=== PATIENT | female | born 1950 | race Caucasian/White ===

== ENCOUNTER 2021-10-19 09:38 | Outpatient (CLI) | payer MEDICARE, OTHER, SELFPAY ==
--- NOTE | 2021-10-19 11:00 | NEURO_ITS ---
Impression: # Complains of numbness of lower extremities. 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 # Needle/EMG exam revealed no fibs, myotonia or myopathic patterns but decreased motor unit potentials are noted. Nerve Conduction Studies Anti Sensory Summary Table Stim Site NR Peak (ms) P-T Amp (?V) Site1 Site2 Delta-P (ms) Dist (cm) Sam (m/s) Left Sup Fibular Anti Sensory (Ant Lat Mall) 14 cm 3.7 16.1 14 cm Ant Lat Mall 3.7 16.0 43 Right Sup Fibular Anti Sensory (Ant Lat Mall) 14 cm 3.4 8.0 14 cm Ant Lat Mall 3.4 16.0 47 Left Sural Anti Sensory (Lat Mall) Calf 3.9 3.8 Calf Lat Mall 3.9 16.0 41 Right Sural Anti Sensory (Lat Mall) Calf 3.5 13.7 Calf Lat Mall 3.5 16.0 46 Motor Summary Table Stim Site NR Onset (ms) O-P Amp (mV) Site1 Site2 Delta-0 (ms) Dist (cm) Sam (m/s) Left Peroneal Motor (Vastus Med) Ankle 5.0 0.7 Popit Ankle 9.8 39.0 40 Popit 14.8 1.8 Right Peroneal Motor (Vastus Med) Ankle 4.6 5.2 Popit Ankle 7.8 36.0 46 Popit 12.4 3.8 Left Tibial Motor (Abd Foster Brev) Ankle 4.6 1.4 Knee Ankle 9.2 39.0 42 Knee 13.8 0.9 Right Tibial Motor (Abd Foster Brev) Ankle 4.7 0.5 Knee Ankle 8.0 38.0 48 Knee 12.7 0.5 F Wave Studies NR F-Lat (ms) L-R F-Lat (ms) Left Peroneal (Mrkrs) (EDB) 51.11 1.76 Right Peroneal (Mrkrs) (EDB) 49.35 1.76 Left Tibial (Mrkrs) (Abd Hallucis) 51.22 1.05 Right Tibial (Mrkrs) (Abd Hallucis) 50.18 1.05 EMG Side Muscle Nerve Root Ins Act Fibs Amp Dur Recrt Comment Right AntTibialis Dp Br Fibular L4-5 Nml Nml Decr >12ms Reduced Right Gastroc Tibial S1-2 Nml Nml Decr >12ms Reduced Right Fibularis Long Sup Br Fibular L5-S1 Nml Nml Decr >12ms Reduced Right Flex Dig Long Tibial L5-S2 Nml Nml Decr >12ms Reduced Right Ext Dig Brev Dp Br Fibular L5, S1 Nml Nml Decr >12ms Reduced Left AntTibialis Dp Br Fibular L4-5 Nml Nml Decr >12ms Reduced Left Gastroc Tibial S1-2 Nml Nml Decr >12ms Reduced Left Fibularis Long Sup Br Fibular L5-S1 Nml Nml Decr >12ms Reduced Left Flex Dig Long Tibial L5-S2 Nml Nml Decr >12ms Reduced Left Ext Dig Brev Dp Br Fibular L5, S1 Nml Nml Decr >12ms Reduced MTDD
== END 2021-10-19 09:39 | disposition home or self-care (01) ==
PROVIDERS: PCP Internal Medicine; Visit Provider Psychiatry & Neurology Neurology
DX: G62.9 Polyneuropathy, unspecified (principal)
CPT/HCPCS: 95886; 95910